=== PATIENT | female | born 1995 | race Caucasian/White ===

== ENCOUNTER → 2022-10-22 | Day surgery (SDC) | payer BC, OTHER ==
[~2022-10-22] MED LIST: ABILIFY5 MG PO; ADDERALL 30 MG30 MG PO; BUSPIRONE HCL10 MG PO; DESVENLAFAXINE50 M1 PO; FENTANYL CITRATE/PF 100MCG/2 ML INJ ONE; LIDOCAINE HCL 2% LOCAL INJ 5 ML SDV VIAL INJ ONE; MIDAZOLAM HCL 2 MG/2 ML VIAL ONE; PROPOFOL IV EMULSION 10 MG/ML 20 ML VIAL ONE
[2022-10-22 14:00] VITALS: BP 107/75
== END | disposition home or self-care (01) ==
LOC: OR 11:02
PROVIDERS: ATTEND Internal Medicine Gastroenterology
DX: K29.50 Unspecified chronic gastritis without bleeding (principal); K20.90 Esophagitis, unspecified without bleeding; K44.9 Diaphragmatic hernia without obstruction or gangrene; K31.89 Other diseases of stomach and duodenum; E28.2 Polycystic ovarian syndrome; F41.9 Anxiety disorder, unspecified; F32.A Depression, unspecified; F98.8 Other specified behavioral and emotional disorders with onset usually occurring in childhood and adolescence; Z91.041 Radiographic dye allergy status; Z91.013 Allergy to seafood; Z79.899 Other long term (current) drug therapy
CPT/HCPCS: 43239; 81025; C9113; J2001; J2250; J2704; J3010